=== PATIENT | male | born 1950 | race Caucasian/White ===

== ENCOUNTER → 2022-05-27 11:02 | Outpatient (CLI) | payer MEDICARE, SELFPAY ==
[2022-05-27 11:39] LABS: Add Manual Diff / Slide Review NO; Basophils Absolute Auto 0 /uL (0-100); Basophils Percent Auto 0.6 % (0-2); Eosinophils Absolute Auto 100 /uL (0-450); Eosinophils Percent Auto 0.8 % (2-4); Hematocrit 40.2 % (41-53); Hemoglobin 14.3 g/dL (13.5-17.5); Lymphocytes Absolute Auto 2500 /uL (1100-4500); Lymphocytes Percent Auto 36.5 % (25-40); Mean Corpuscular HGB Conc 35.5 % (30-36); Mean Corpuscular Hemoglobin 33.6 PG (26-34); Mean Corpuscular Volume 94.7 fL (80-100); Monocytes Absolute Auto 900 /uL (0-900); Monocytes Percent Auto 12.8 % (3-14); Neutrophils Absolute Auto 3400 /uL (1500-7000); Neutrophils Percent Auto 49.3 % (50-75); Platelet Count 314 X10^3/uL (150-400); Red Blood Cell Count 4.25 X10^6/uL (4.5-5.9); White Blood Cell Count 6.9 X10^3/uL (4.5-11.0)
[2022-05-27 11:55] LABS: Hemoglobin A1C% w Est Avg Glu 5.6 % (4.0-6.0)
[2022-05-27 12:08] LABS: Appearance Urine UA CLEAR; Bilirubin Urine UA NEGATIVE (NEGATIVE); Color Urine UA YELLOW; Glucose Urine UA NEGATIVE (Negative); Ketones Urine UA NEGATIVE (NEGATIVE); Leukocyte Esterase Urine UA NEGATIVE (NEGATIVE); Nitrite Urine UA NEGATIVE (Negative); Occult Blood Urine UA NEGATIVE (Negative); Protein Urine UA NEGATIVE (Negative); Urobilinogen Urine UA 0.2 E.U./dL (0.2); pH Urine UA 6.5 (4.5-8.0)
[2022-05-27 12:14] LABS: BUN Creatinine Ratio 17.4 (6-22); Blood Urea Nitrogen 15 mg/dL (9-20); Calcium 8.8 mg/dL (8.4-10.2); Carbon Dioxide 24 mmol/L (22-32); Chloride 98 mmol/L (98-107); Estimated Glomerular Filt Rate > 60 mL/min (>60); Glucose 97 mg/dL (80-110); HEMOLYSIS < 15 (0-50); Sodium 132 mmol/L (137-145)
[2022-05-27 12:20] LABS: Bacteria Urine None Seen; Culture Indicated Urine Cult Not Indicated; RBC Urine None Seen (0-5/HPF); Squamous Epithelial Cell Urine None Seen (0-5/HPF); WBC Urine None Seen (0-5/HPF)
== END ==
PROVIDERS: Referring Provider Orthopaedic Surgery; Visit Provider Orthopaedic Surgery
DX: Z01.818 Encounter for other preprocedural examination (principal); R73.9 Hyperglycemia, unspecified
CPT/HCPCS: 36415; 80048; 81001; 83036; 85025; 93005

== ENCOUNTER → 2022-10-07 12:29 | Outpatient (CLI) | payer MEDICARE, SELFPAY ==
[2022-10-07 13:01] LABS: Add Manual Diff / Slide Review NO; Basophils Absolute Auto 0 /uL (0-100); Basophils Percent Auto 0.7 % (0-2); Eosinophils Absolute Auto 100 /uL (0-450); Hematocrit 39.8 % (41-53); Hemoglobin 14.2 g/dL (13.5-17.5); Lymphocytes Absolute Auto 2500 /uL (1100-4500); Lymphocytes Percent Auto 35.4 % (25-40); Mean Corpuscular HGB Conc 35.6 % (30-36); Mean Corpuscular Hemoglobin 33.7 PG (26-34); Mean Corpuscular Volume 94.7 fL (80-100); Monocytes Absolute Auto 900 /uL (0-900); Monocytes Percent Auto 12.4 % (3-14); Neutrophils Absolute Auto 3600 /uL (1500-7000); Neutrophils Percent Auto 50.5 % (50-75); Platelet Count 308 X10^3/uL (150-400); Red Blood Cell Count 4.21 X10^6/uL (4.5-5.9); Red Cell Distribution Width 12.5 % (11.6-14.8); White Blood Cell Count 7.2 X10^3/uL (4.5-11.0)
[2022-10-07 14:13] LABS: BUN Creatinine Ratio 18.7 (6-22); Blood Urea Nitrogen 14 mg/dL (9-20); Calcium 8.7 mg/dL (8.4-10.2); Carbon Dioxide 26 mmol/L (22-32); Chloride 95 mmol/L (98-107); Estimated Glomerular Filt Rate > 60 mL/min (>60); Glucose 101 mg/dL (80-110); HEMOLYSIS < 15 (0-50); Potassium 4.1 mmol/L (3.4-5.1); Sodium 130 mmol/L (137-145)
== END ==
PROVIDERS: PCP Registered Nurse; Referring Provider Orthopaedic Surgery; Visit Provider Orthopaedic Surgery
DX: Z01.812 Encounter for preprocedural laboratory examination (principal)
CPT/HCPCS: 36415; 80048; 85025

== ENCOUNTER 2022-10-22 11:27 | Day surgery (SDC) | payer MEDICARE, SELFPAY ==
[2022-10-15 09:23] VITALS: BMI 27.2
[2022-10-22] VITALS (9 sets, daily range): BP systolic 112–176; BP diastolic 72–101; PULSE 61–93; RESP 12–21; TEMP 35.9–36.4; O2SAT 98–100; BMI 27.2
[2022-10-22] MEDS: ACETAMINOPHEN 325 MG TABLET 975 MG PO (12:22)
[2022-10-22] MEDS: LACTATED RINGERS 1,000 ML 42 ML IV (12:22)
[2022-10-22] MEDS: CELECOXIB 200 MG CAPSULE PO (12:23)
[2022-10-22] MEDS: VANCOMYCIN 1,000 MG/200 ML PIGGYBACK 200 MG IV (13:48)
--- NOTE | 2022-10-22 14:28 | P.OP_ITS ---
Operative Date/Time/Diagnoses Date of procedure: 10/22/22 Time of procedure: 15:00 Pre-op diagnosis: SEVERE RIGHT KNEE OA Post-op diagnosis: same Procedure & Clinicians Procedure: Right total knee arthroplasty Same procedure as scheduled: Yes Indications: The patient has had progressively worsening right knee pain with radiographic changes consistent with arthritis. Non-operative management has failed and the patient has requested total knee replacement. The risks, benefits and alternatives to surgery were discussed with the patient prior to proceeding. Risks discussed included, but were not limited to, failure to relieve pain, stiffness, infection, nerve damage, deep venous thrombosis, pulmonary embolism, stroke, coma, heart attack, permanent paralysis and , as well as the potential need for eventual revision of the prosthetic. Surgeon: Kiera Montoya Quality Control Analyst: Lukas Fisher Anesthesia Type: General and Peripheral nerve block Operative Notes Findings: Severe right knee osteoarthritis, adequate stability Closure Type: primary Specimen(s): none sent Prosthetic devices, grafts, tissues, transplants, or devices: [facility]oya [facility]hew [facility] BCS 2 size 6 femur, size 6 tibia, +10 poly, 38 mm oval patella Estimated Blood Loss (mL): 250 Blood products transfused: none Tourniquet time (min): 76 Procedure in detail: The patient was seen in the pre-operative area, where the patient identified the right knee as the operative site and this was marked with my initials. A preoperative block was placed for postoperative pain med pain management. The patient received pre-operative antibiotics, and was taken to the operating room and placed on the operative table in the supine position. After satisfactory anesthesia, a maintenance and repair worker out was performed. The right leg was encircled with a tourniquet about the proximal thigh, and the leg was prepared from the toes to the tourniquet with ChloroPrep in the usual fashion and draped through sterile drapes. The leg was elevated and exsanguinated with Eschmark bandage and the tourniquet inflated to [250] mmHg pressure. A PA was used throughout the procedure was essential for intraoperative positioning, adequate hemostasis and safe implantation of the components. The knee was approached through an approximately 18 cm incision centered over the patella and carried into the knee through a medial parapatellar arthrotomy. A portion of the medial and lateral meniscus was resected. Soft tissue was carefully mobilized around the patella the patella was measured with a caliper. Bone was resected from the patella and the patellar height was reconstituted with up an appropriate sized patellar component. A cover was then placed on the patella. A small amount of additional medial and lateral meniscus was resected. The distal femur was cut at 5?. A [+2] cut was used. It looked like an appropriate distal femoral cut and the cut was made without difficulty. An extramedullary guide was used for the tibial cut. 10 mm was resected off the least affected side. The tibia was prepared. The rotation was assessed. The patient was placed in extension residual medial and lateral meniscus as well as any residual bone was carefully resected. [No] additional tibia was resected. Hemostasis was achieved especially posteriorly. Additional local was injected into the posterior capsule. The extension gap was assessed and additional releases for gap balancing were performed as necessary. It was checked with the gap real estate loan processor. The femoral component was trial was placed and the notch was finished. The rotation was assessed and the appropriate size femoral guide was placed on the distal femur and finishing cuts were made. There was no evidence of notching. The anterior, posterior and chamfer cuts were then made. The posterior osteophytes and soft tissues were then removed. The posterior capsule was injected with part of a mixture of 60 ml 0.25% Marcaine mixed with 20 ml Exparel for post operative pain control. The remainder of this mixture was injected into the capsule and subcutaneous tissues during cement curing. The tibial and femoral components were then placed and the knee placed through a range of motion. Range of motion was [0-130], with good stability throughout the range. The trials were then removed, and the tibia was finished. The bone was prepared with pulsatile lavage, and dried with a sponge. Cement was applied and the final prosthetics placed. Excess cement was removed during and after cement curing. A brief Betadine soak was performed. After confirming there was no extruded daljit ent posteriorly, the final tibial insert was placed. The knee was copiously irrigated and the tourniquet deflated. Hemostasis was obtained with the Bovie cautery. The capsule was closed with interrupted nonabsorbable suture. The subcutaneous layer was closed with barbed sutures, and the skin with a running 3-0 V-Lock suture and Surgical glue. An Aquacel Ag dressing was applied and the patient was taken to recovery having tolerated the procedure well. Complications: none Post-operative Condition: stable Disposition: same day surgery Plan for aftercare: The patient will be maintained on a standard total knee replacement protocol with weight bearing as tolerated. The patient will receive aspirin and sequential compression devices for DVT prophylaxis. The patient will be discharged home when safe for the home environment.
--- NOTE | 2022-10-22 14:28 | PM.PREOP ---
Pre-operative Note Interval Note History & Physical reviewed/Exam performed by Physician: Yes Changes to H&P: No
--- NOTE | 2022-10-22 14:32 | SUR.PREOP ---
Block start time [1430] . Monitoring initiated and maintained throughout procedure. Oxygen and medications given per anesthesiologist instructions. Patient remained stable throughout procedure, no adverse reactions noted. Block end time [1437].
[2022-10-22] MEDS: CEFAZOLIN 2 GM/100 ML PREMIX 100 ML IV ×2 (15:00→22:04)
--- NOTE | 2022-10-22 15:48 | SUR.OPER ---
Supine on padded OR bed. Pillow under head, arms secured on padded armboards <90 degree abduction. Safety belt across torso. Non-operative leg secured with tape over blanket over lower leg. Operative leg secured in DeMayo positioner. Foam padded brace at thigh of operative leg.
[2022-10-22] MEDS: BUPIVACAINE LIPOSOME 266 MG/20 ML VIAL INJ (15:54)
[2022-10-22] MEDS: BUPIVACAINE 0.25% (PF) 60 ML, EPINEPHrine 0.3 MG INJ (15:54)
[2022-10-22] MEDS: SODIUM CHLORIDE IRRIG SOLUTION 250 ML, POVIDONE-IODINE SPONGE STICKS 1 APPLIC IRR (15:56)
--- NOTE | 2022-10-22 17:00 | DI.RAD.S_ITS ---
PROCEDURE: XR KNEE RT 1TO2V INDICATIONS: RIGHT KNEE TOTAL POST OP TECHNIQUE: 2 view(s) of the knee acquired. COMPARISON: [facility], XR KNEE 4+ VIEWS RIGHT, 05/27/2022, 10:06. FINDINGS: Bones: Patient is status post knee joint arthroplasty. Hardware components are in expected positions. Visualized bony structures are intact. Soft tissues: Overlying postoperative changes are noted. IMPRESSION: Expected postoperative appearance of the right knee arthroplasty. Dictated by: Ra Flor M.D. on 10/23/2022 at 9:10 Approved by: Ra Flro M.D. on 10/23/2022 at 9:11
[2022-10-22] MEDS: OXYCODONE IR 5 MG TABLET PO ×2 (17:06→22:00)
[2022-10-22] MEDS: TRANEXAMIC ACID 1,000 MG VIAL 2000 MG INJ (17:08)
[2022-10-22] MEDS: LACTATED RINGERS 1,000 ML 100 ML IV (17:43)
[2022-10-22] MEDS: ACETAMINOPHEN 325 MG TABLET 650 MG PO (17:49)
[2022-10-22] MEDS: IBUPROFEN 400 MG TABLET PO ×2 (17:50→20:40)
[2022-10-22] MEDS: ASPIRIN EC 81 MG TABLET PO (20:40)
[2022-10-22] MEDS: DOCUSATE 100 MG CAPSULE PO (20:40)
[2022-10-22] MEDS: hydrOXYzine pamoate 25 MG CAPSULE PO (22:00)
[2022-10-23] VITALS: BP 141/75; PULSE 62; RESP 18; TEMP 36.3; O2SAT 97
[2022-10-23 04:00] VITALS: BP 146/77; PULSE 74; RESP 19; TEMP 36.3; O2SAT 98
[2022-10-23] MEDS: ACETAMINOPHEN 325 MG TABLET 650 MG PO ×2 (04:52→12:36)
[2022-10-23] MEDS: IBUPROFEN 400 MG TABLET PO ×2 (04:52→08:59)
[2022-10-23] MEDS: LACTATED RINGERS 1,000 ML 100 ML IV (04:53)
[2022-10-23 06:01] LABS: Hematocrit 36.3 % (41-53); Hemoglobin 12.7 g/dL (13.5-17.5)
[2022-10-23] MEDS: CEFAZOLIN 2 GM/100 ML PREMIX 100 ML IV (06:50)
--- NOTE | 2022-10-23 06:52 | P.DS_ITS ---
History of Present Illness History of Present Illness Date Patient Seen: 10/23/22 Time Patient Seen: 06:52 Chief complaint: Right TKA *OPB* Narrative: Operative Date/Time/Diagnoses Date of procedure: 10/22/22 Time of procedure: 15:00 Pre-op diagnosis: SEVERE RIGHT KNEE OA Post-op diagnosis: same Procedure & Clinicians Procedure: Right total knee arthroplasty Same procedure as scheduled: Yes Indications: The patient has had progressively worsening right knee pain with radiographic changes consistent with arthritis. Non-operative management has failed and the patient has requested total knee replacement. The risks, benefits and alternatives to surgery were discussed with the patient prior to proceeding. Risks discussed included, but were not limited to, failure to relieve pain, stiffness, infection, nerve damage, deep venous thrombosis, pulmonary embolism, stroke, coma, heart attack, permanent paralysis and , as well as the potential need for eventual revision of the prosthetic. Surgeon: Kiera Montoya Veterinary Technician Assistant: Lukas Fisher Anesthesia Type: General and Peripheral nerve block Operative Notes Findings: Severe right knee osteoarthritis, adequate stability Closure Type: primary Specimen(s): none sent Prosthetic devices, grafts, tissues, transplants, or devices: [facility] BCS 2 size 6 femur, size 6 tibia, +10 poly, 38 mm oval patella Estimated Blood Loss (mL): 250 Blood products transfused: none Tourniquet time (min): 76 Discharge Providers Provider Discharge Date: 10/23/22 Primary care physician: KATTY Gomez Consults: 10/22/22 08:17 Consult to Anesthesiology Routine Comment: Consulting Provider: Anesthesiologist Reason for consultation: Regional block for post operative pain control 10/22/22 17:26 Consult to Discharge Planning Routine Comment: Consult to Occupational Therapy Evaluate & Treat Comment: Physician Instructions: Evaluate and treat Consult to Physical Therapy Evaluate & Treat Comment: Physician Instructions: postop TKA protocol Discharge provider: Elissa Cornelius PA-C Summary Hospital Course Discharge Diagnosis: Right knee osteoarthritis, s/p total knee arthroplasty Hospital Course: Mr Jean's hospital course was unremarkable. On the morning of POD# 1, he was feeling well and wanted to go home. He was eating and voiding without difficulty and his pain was well-controlled with oral medication. He had not yet been evaluated by PT. Exam Vital Signs (past 8 hours): - 10/23/22 00:00 10/23/22 04:00 Temperature 97.3 F L 97.4 F L Pulse Rate 62 74 Respiratory Rate 18 19 Blood Pressure 141/75 H 146/77 H Pulse Oximetry 97 98 Oxygen Flow Rate 0 0 Oxygen Delivery Method Room Air Oxygen Flow Rate 0 Narrative Exam Narrative: 5/5 strength in hip flexors, quadriceps, hamstrings, DF, PF, EHL on right. Sensation to light touch intact throughout RLE. Calf soft, compressible, nontender and without palpable cords or masses. HERMILO wrap and Aquacel dressing CDI. Objective Labs 10/23/22 05:45 Labs: Laboratory Results - last 24 hr 10/23/22 05:45 Hgb 12.7 L Hct 36.3 L PFSH Medical History (Updated 10/15/22 @ 10:20 by Lila Baird RN) Allergies BCC (basal cell carcinoma) Diverticulosis Easy bruisability Elevated cholesterol History of COVID-19 (~2020) SCC (squamous cell carcinoma) Surgical History (Updated 10/15/22 @ 10:16 by Lila Baird RN) H/O vasectomy History of total left knee replacement (~2016) Hx of arthroscopy of left knee Hx of colonoscopy Hx of hernia repair Social History household members: spouse Smoking Status: Never smoker alcohol intake: current Discharge Assessment & Plan Assessment and Plan Assessment: Right knee osteoarthritis, s/p total knee arthroplasty Plan of Treatment: Discharge home after PT if PT agrees. Multimodal pain control, ASA BID x 6 weeks for VTE prophylaxis, outpt PT, f/u in office in 2 weeks as scheduled. Pt has postop pain meds at home. Discharge Plan Discharge Plan Patient Disposition: Home Discharge orders & Medications Discharge Orders: Discharge (Order); Ordered 10/23/22 Ordered By: Elissa Cornelius Prescriptions: Continued naproxen sodium [Aleve] 220 mg Capsule 220 mg PO DAILY PRN (Reason: Pain) Follow up/Referrals: Saira Schroeder FNP-C [Primary Care Provider] - Kiera Montoya MD [Physician] - As previously scheduled (Follow up with Dr Montoya on 11/04/2022 @ 11:00 am at [facility] in [place].) Diet/Activity/Treatments Diet: Diet as Tolerated Activity: Walk frequently! Other treatments: Aspirin 81 mg twice a day x 6 weeks Skin/Wound/Dressing Care Report to your healthcare provider any signs of infection, such as:: chills, fever, night sweats, unusual drainage and unusual redness Dressing: May remove HERMILO wrapy and shower on 10/25/2022. Leave Aquacel dressing in place until follow up in office. No bathing or otherwise soaking incision. Call the office if the dressing becomes saturated inside. Visit Report/Discharge Packet Instructions: DI for Knee Replacement Stand Alone Forms: Patient Portal/API, Surgery Discharge Discharge Data Primary Care Provider: Saira Schroeder Attending Provider: Kiera Montoya VTE Deep Vein Thrombosis/Pulmonary Embolism Present on Admission: No
[2022-10-23 08:38] VITALS: BP 145/80; PULSE 73; RESP 17; TEMP 36.7; O2SAT 96
[2022-10-23] MEDS: ASPIRIN EC 81 MG TABLET PO (08:59)
[2022-10-23] MEDS: DOCUSATE 100 MG CAPSULE PO (08:59)
--- NOTE | 2022-10-23 09:24 | OT.IP.EVAL ---
Current Diagnoses Unilateral primary osteoarthritis, right knee (10/22/22) Surgery Performed Operation Date: 10/22/22 13:45 Actual Procedures p Total Knee Arthroplasty(Right) - Kiera Montoya MD Past Medical History (Last Updated 10/15/22 @ 10:20 by Lila Baird, RN) Allergies BCC (basal cell carcinoma) Diverticulosis Easy bruisability Elevated cholesterol History of COVID-19 (~2020) SCC (squamous cell carcinoma) Surgical History (Last Updated 10/15/22 @ 10:16 by Lila Baird RN) H/O vasectomy History of total left knee replacement (~2016) Hx of arthroscopy of left knee Hx of colonoscopy Hx of hernia repair Occupational Therapy Inpatient Evaluation/Re-Eval M1 PT/OT-IP Prior Functional Status Start: 10/23/22 10:31 Freq: NEEDED Status: Active Protocol: Document 10/23/22 08:45 [facility] (Rec: 10/23/22 10:51 [facility] [id number]) Medical Review Prior Functional Status Communication Independent Mobility and Gait Pt states was using a crutch in the past 2 days to assist with mobility due to his pain. Activities of Daily Living and IADL's Pt able to do but had pain. Social History Household Members spouse Living Arrangements House Number of Stairs To Enter/Railing? 4 steps with no rails and steps to get upstairs but will just stay on the main level. Home Environment Standard Height Toilet,Tub/ Shower Home Equipment Front Wheel Walker,Crutches, Grab Bars Near Toilet Additional Social History Comment Pt has a walking stick. M2 OT-IP Current Condition Start: 10/23/22 10:31 Freq: Status: Active Protocol: Document 10/23/22 08:45 [facility] (Rec: 10/23/22 10:51 [facility] [id number]) Occupational Therapy Current Condition Current Condition Evaluation Date 10/23/22 Treatment Diagnosis R TKA Diagnosis Onset Date 10/22/22 M3 OT- IP Subjective and Pain Start: 10/23/22 10:31 Freq: Status: Active Protocol: Document 10/23/22 08:45 [facility] (Rec: 10/23/22 10:51 [facility] [id number]) OT- Subjective Occupational Therapy Visit Type Type Initial Evaluation Visit Start Time 08:45 Visit Stop Time 09:24 Total Visit Minutes 39 Occupational Therapy Visit Comments Patient Comments Pt agreed to shower. Patient/Caregiver Goals To go home. OT Pain Assessment Pain When Pain Assessed At Rest Pain Present Pain Present Pain Reported Location knee Intensity 2 Scale Used Numeric (0 - 10) M4 OT- IP ADL's Start: 10/23/22 10:31 Freq: Status: Active Protocol: Document 10/23/22 08:45 [facility] (Rec: 10/23/22 10:51 [facility] [id number]) OT [id number]-Eglizdn General Evaluation Self-Feeding Ability Independent OT ADL-Grooming General Evaluation Grooming Ability Independent OT ADL-Oral Care General Eval Oral Care Ability Independent OT ADL-Dressing General Eval Upper Body Dressing Ability Independent Lower Body Dressing Ability Minimal Assistance Comments OT Dressing Comments MELE to help get the orientation on his brief/ shorts. Educated pt on placing his surgical side in first and to take it out last. OT ADL-Toileting General Evaluation Toileting Ability Standby Assistance OT ADL-Bathing Bathing Type Bathing Type Shower General Evaluation Bathing Ability Minimal Assistance Areas Needing Assistance Wash/Dry Back Comments OT Bathing Comments Assist to wash his back. M5 OT- IP IADL's Start: 10/23/22 10:31 Freq: Status: Active Protocol: Document 10/23/22 08:45 [facility] (Rec: 10/23/22 10:51 [facility] [id number]) OT-Instrumental Activities of Daily Living Deficits IADL Deficits Identified Deficits Home Safety Awareness Awareness of Need for Assistance at Home Good Awareness Ability to Problem Solve Emergency Able to Problem Solve Situations M6 OT- IP Functional Cognition Start: 10/23/22 10:31 Freq: Status: Active Protocol: Document 10/23/22 08:45 [facility] (Rec: 10/23/22 10:51 [facility] [id number]) Cognitive Factors Limiting Selfcare Function Cognitive Ability Level of Alertness Alert Patient Orientation Name,Age,Birthday,Month,Date, Year,Day of Week,Place, Situation Attention Span Ability Capable of Focused Attention, Capable of Sustained Attention Ability to Follow Commands Able to Follow Multi-Step Commands Cognitive Comments Cognitive Assessment Comments Pt intact. M7 OT- IP Mobility and Balance Start: 10/23/22 10:31 Freq: Status: Active Protocol: Document 10/23/22 08:45 [facility] (Rec: 10/23/22 10:51 [facility] [id number]) OT- Bed Mobility Assessment Supine to Sit Supine to Sit Assist Standby Assistance Sit to Supine Sit to Supine Assist Standby Assistance Scooting Scooting to Edge of Bed Standby Assistance OT-Transfer Assessment Sit to and From Stand Sit to and from Stand Standby Assistance Transfers Transfer Ability Standby Assistance,Contact Guard Assistance Technique Transfer Destination Bed,Chair Devices Transfer Assistive Devices Gait Belt,Front Wheeled Walker Comments Mobility Comments SBA for bed mobility and to stand with FWW , CGA to help step over the threshold of the shower. OT- Balance Assessment Sitting Balance and Reactions Static Sitting Balance Ability Normal Dynamic Sitting Balance Ability Normal Standing Balance and Reactions Static Standing Balance Ability Good Dynamic Standing Balance Ability Fair M9 OT- IP Assessment and Plan Start: 10/23/22 10:31 Freq: Status: Active Protocol: Document 10/23/22 08:45 [facility] (Rec: 10/23/22 10:51 [facility] [id number]) OT Summary Assessment and Plan Potential Rehabilitation Potential Excellent Analytic Complexity at Evaluation Low Summary OT Impairments Pain,Balance,Functional Mobility,Dressing,Bathing, Shower Transfers Progress Towards Goals Progressing Toward Goals Assessment Summary Pt low complexity and main barriers is pain. Pt doing well and able to tolerate a shower and went over OT safety suggestions and equipment needs with the pt. Pt to go home when medically stable. Pt may benefit from a shower chair. Goals Dressing Goal Independent Bathing Goal Independent Shower Transfer Goal Independent Days to Meet Goals 5 Frequency of Treatment Frequency Of Treatment Once a Day Treatment Plan OT Treatment Plan ADL Training,Functional Mobility,Patient/Family Education,Discharge Planning Discharge Recommendations OT Discharge Recommendations Home with Assistance Home Equipment Needs shower chair? Transportation Needs at Discharge Private Vehicle
[2022-10-23] MEDS: OXYCODONE IR 5 MG TABLET PO (09:27)
--- NOTE | 2022-10-23 11:09 | PT.IIE ---
Current Diagnoses Unilateral primary osteoarthritis, right knee (10/22/22) Surgery Performed Operation Date: 10/22/22 13:45 Actual Procedures p Total Knee Arthroplasty(Right) - Kiera Montoya MD Surgical History (Last Updated 10/15/22 @ 10:16 by Lila Baird RN) H/O vasectomy History of total left knee replacement (~2016) Hx of arthroscopy of left knee Hx of colonoscopy Hx of hernia repair Medical History (Last Updated 10/15/22 @ 10:20 by Lila Baird RN) Allergies BCC (basal cell carcinoma) Diverticulosis Easy bruisability Elevated cholesterol History of COVID-19 (~2020) SCC (squamous cell carcinoma) Physical Therapy Inpatient Evaluation/Re-Eval M1 PT/OT-IP Prior Functional Status Start: 10/23/22 10:31 Freq: NEEDED Status: Active Protocol: Document 10/23/22 10:58 ES (Rec: 10/23/22 11:09 ES [id number]) Medical Review Prior Functional Status Medical History Reviewed Yes Diet/Fluid Consistency Regular Communication Independent Mobility and Gait Pt states has been using crutches in the past few weeks and has been having difficulty walking around, mostly riding his bike to get from place to place around his property. Activities of Daily Living and IADL's Pt able to do but had pain. Social History Household Members spouse Living Arrangements House Number of Floors (Floors) Two Floors Number of Stairs To Enter/Railing? 4 steps with no rails to enter . Full flight to upper level but plans to stay on roller leveler initially. Home Environment Standard Height Toilet,Tub/ Shower Home Equipment Front Wheel Walker,Crutches, Grab Bars Near Toilet Additional Social History Comment Pt has a walking stick. M2 PT-IP Current Condition Start: 10/23/22 10:58 Freq: NEEDED Status: Active Protocol: Document 10/23/22 10:58 ES (Rec: 10/23/22 11:09 ES [id number]) Physical Therapy Current Condition Current Condition Evaluation Date 10/23/22 Treatment Diagnosis S/p R TKA Onset Date 10/22/22 M3 PT-IP Subjective Start: 10/23/22 10:58 Freq: NEEDED Status: Active Protocol: Document 10/23/22 10:58 ES (Rec: 05/26/23 11:09 ES [id number]) Subjective Physical Therapy Visit Type Type Initial Evaluation Visit Start Time 10:20 Visit Stop Time 10:53 Total Visit Minutes 33 Physical Therapy Visit Comments Patient Comments Patient dressed, sitting up in chair, agreeable to work with PT. Therapy Pain Assessment Pain When Pain Assessed During Mobility Pain Present Pain Present Pain Reported Location knee Intensity 5 Scale Used Numeric (0 - 10) Description With Movement Pain Management Techniques Apply Cold M4 PT-IP Mobility and Gait Start: 10/23/22 10:58 Freq: NEEDED Status: Active Protocol: Document 10/23/22 10:58 ES (Rec: 10/23/22 11:09 ES [id number]) PT-Bed Mobility Assessment Supine to Sit Supine to Sit Independent Sit to Supine Sit to Supine Independent Scooting Scooting to Edge of Bed Independent Scooting Up and Down in Bed Independent PT-Transfer Assessment Sit to and From Stand Sit to and from Stand Independent,Use of Upper Extremities Equipment Transfer Assistive Device Front Wheeled Walker Orthotic/Prosthetic Devices or Brace: No Transfers Transfer Destination Bed Transfer Ability Level of Assist Independent,Use of Upper Extremities Comments Mobility Comments Educated to have FWW in front at all times when standing/ moving for safety. Gait Assessment Gait Gait Assistance Required: Independent Distance (Feet) 150 Able to Maintain Weight Bearing Status Yes During Gait Assistive Devices Assistive Device Gait Belt,Front Wheeled Walker Gait Deviations General Gait Pattern Antalgic Factors Limiting Gait Function Factors Limiting Gait Function Decreased Strength,Pain Comments Gait Comments Patient initially with minimal WB on RLE, poor heel strike, step-to pattern. Able to improve WB and knee extension for heel strike with cueing and practice. Stair Climbing Assessment Evaluation Level of Assist On Stairs Contact Guard Assistance Devices Stair Climbing Assistive Devices Axillary Crutches Technique/Endurance Stair Climbing Direction Ascend and Descend Stair Climbing Technique Step to Step Number of Steps Climbed 3 Query Text: Stair Climbing Set # Repetitions (reps) 2 Comments Stair Climbing Comments Instructed patient in appropriate use of crutches on stairs, with best performance when placing one crutch up on the next step, one crutch on same step for both ascending and descending to reduce fall risk. Educated patient on use of gait belt with on downhill side of stairs to increase safety. PT-Balance Assessment Sitting Balance and Reactions Static Sitting Balance Ability Normal Dynamic Sitting Balance Ability Normal Standing Balance and Reactions Static Standing Balance Ability Good Dynamic Standing Balance Ability Good Device Used FWW M5 PT-IP Objective Assessments Start: 10/23/22 10:58 Freq: NEEDED Status: Active Protocol: Document 10/23/22 10:58 ES (Rec: 10/23/22 11:09 ES [id number]) Orientation Orientation/Cognition Level of Alertness Alert Orientation Name,Age,Birthday,Month,Date, Year,Day of Week,Place, Situation Language Function Ability No Deficits Noted Safety Awareness Understands Safety Issues Memory Description No Deficits Noted Gross Range of Motion Upper Extremity ROM Assessment Within Functional Limits Lower Extremity ROM Assessment Within Functional Limits Strength Upper Extremity Strength Assessment Within Functional Limits Lower Extremity Strength Assessment Right Impaired Comments Strength Comments Fair R quad activation Coordination Assessment Gross Coordination Gross Coordination WNL Sensation Assessment Sensation Gross Sensation WNL Muscle Tone Muscle Tone WNL Yes M6 PT-IP Treatment Start: 10/23/22 10:58 Freq: NEEDED Status: Active Protocol: Document 10/23/22 10:58 ES (Rec: 10/23/22 11:09 ES [id number]) Physical Therapy Treatment Exercises Exercises Ankle Pumps,Quad Sets,Heel Slides,Straight Leg Raises, Short Arc Quads,Passive Knee Extension Hang,Seated Knee Flexion/Extension Education Education Provided Precautions,Weight Bearing Status,Post-Op Packet,Safety M7 PT-IP Assessment and Plan Start: 10/23/22 10:58 Freq: NEEDED Status: Active Protocol: Document 10/23/22 10:58 ES (Rec: 10/23/22 11:09 ES [id number]) PT Summary Assessment and Plan Potential Rehabilitation Potential Excellent Status of Condition at Evaluation Stable Summary Impairments Pain,ROM,Strength,Balance,Gait Assessment Summary Patient is a 71 year old male POD #1 s/p R TKA. He demonstrated all mobility tasks at independent level using FWW with the exception of stairs, requiring SBA/CGA due to decreased strength and balance of RLE. His will need to be with him and encouraged patient to use gait belt for safety, and patient demonstrated good understanding. Patient is lacking terminal knee extension ROM/strength and will benefit from OP PT to address this when cleared by his surgeon to begin. Otherwise patient is safe to d /c home with 's assistance . Frequency of Treatment Frequency Of Treatment Discharge Weight Bearing Status Weight Bearing Status Weight Bear as Tolerated Recommendations To Nursing Amount of Assist Needed Standby Assistance Discharge Recommendations PT Discharge Recommendations Home with Assistance, Outpatient PT Transportation Needs at Discharge Private Vehicle
--- NOTE | 2022-10-23 11:17 | CM.DANOTE ---
Initial DCP Assessment Note Pt is a 71 yo male, resident of [place], now POD#1 p Total Knee Arthroplasty(Right) - Kiera Montoya MD PCP: Saira Schroeder Payer: JEOVANY/CLAUDIO Reviewed chart, pt discussed in multidisciplinary rounds this morning. Therapy has cleared pt for return home w/family to assist and pt has planned for home, DC order from Ortho has already been initiated this morning. No barriers identified at this time to patient's safe discharge home w/family to assist; close outpatient f/u recommended. SHANTELLE Forrest Discharge Planning/Care Management CM Discharge Assessment Start: 10/23/22 11:11 Freq: Status: Active Protocol: Document 10/23/22 11:11 JACKIE (Rec: 10/23/22 11:17 JACKIE [id number]) Discharge Planning Assessment Assigned [employer]er SHANTELLE Kwon DPOA/Assigned Designee Name Bartolome Graff, spouse Contact Information [phone] Advance Directives? No History Provided By Patient,Medical Record Prior Living Arrangements House Household Members spouse Type of transporation used prior to Drives own vehicle admit Independent with ADL's Yes: poor activity tolerance r /t pain Is patient alert and oriented? Yes Needs Assistance With Home Chores / Shopping Patient/Family Preference OP PT Therapy Barriers to Discharge No Discharge Plan Home Transportation Arrangement Spouse Referrals Initiated None needed
[2022-10-23] MEDS: OXYCODONE IR 10 MG TABLET PO (12:35)
--- NOTE | 2022-10-23 12:56 | PC.NURSE ---
Day shift: Pt left unit via WC at approx 1255. Paperwork signed and all questions answered. Pain well controlled per JUL. Quarter sized shadow drainage seen on Aquacel. HERMILO wrap in place. Pt has all personal belongings. Already has MD scripts.
== END 2022-10-23 13:01 | disposition home or self-care (01) ==
LOC: OR 11:28 → AC 11:28
PROVIDERS: PCP Registered Nurse; Referring Provider Orthopaedic Surgery; Visit Provider Orthopaedic Surgery
PROC: 0SRC0JZ Replacement of Right Knee Joint with Synthetic Substitute, Open Approach (ICD-10-PCS; CPT 27447; principal; 2022-10-22 13:45)
DX: M17.11 Unilateral primary osteoarthritis, right knee (principal); G89.18 Other acute postprocedural pain
CPT/HCPCS: 27447; 36415; 64450; 73560; 82962; 85014; 85018; 97161; 97165; 97535; C1776; C9290; J0171; J0330; J0690; J2250; J2405; J2704; J3010